=== PATIENT | male | born 1950 | race Caucasian/White ===

== ENCOUNTER 2016-06-19 12:49 | Inpatient (IN) | payer BC ==
[~2016-06-19] VITALS: Ht 185.4 cm; Wt 92.1 kg
[2016-08-19] MEDS ORDERED: VITAMIN C500 MG PO (12:24)
[2016-08-19] MEDS ORDERED: ZESTRIL 10MG10 MG PO (12:24)
[2016-08-19] MEDS ORDERED: FERROUS SU325 MG/TAB PO (12:24)
[2016-08-19] MEDS ORDERED: FOLIC ACID 40400 MCG PO (12:24)
[2016-08-20] MEDS ORDERED: SUDAFED60 MG PO (12:37)
[2016-08-21] VITALS (12 sets, daily range): BP systolic 105–157; BP diastolic 57–95; PULSE 55–95; TEMP 97.5–98.9
[2016-08-22 04:32] VITALS: BP 136/78; PULSE 90; TEMP 98.1
[2016-08-22 06:46] LABS: HEMATOCRIT 35.6 % (42.0-52.0); HEMOGLOBIN 11.7 g/dl (13.5-18.0)
[2016-08-22 07:35] VITALS: BP 113/55; PULSE 78; TEMP 98.9
[2016-08-22 11:45] VITALS: BP 119/60; PULSE 78; TEMP 98.8
[2016-08-22 16:17] VITALS: BP 129/60; PULSE 80; TEMP 98.8
[2016-08-22 20:11] VITALS: BP 121/67; PULSE 78; TEMP 98.5
[2016-08-23 00:18] VITALS: BP 127/65; PULSE 80; TEMP 97.2
[2016-08-23 04:19] VITALS: BP 122/64; PULSE 76; TEMP 98.5
[2016-08-23 06:36] LABS: HEMATOCRIT 32.8 % (42.0-52.0); HEMOGLOBIN 10.9 g/dl (13.5-18.0)
[2016-08-23] MEDS ORDERED: ASPI325T6 PO (06:39)
[2016-08-23] MEDS ORDERED: NORCO 325 MG-7.1 TAB PO (06:39)
[2016-08-23] MEDS ORDERED: SENOKOT S 50 MG1 TAB PO (06:40)
[2016-08-23] MEDS ORDERED: ROXICODONE 55 MG/TAB PO (06:40)
[2016-08-23 08:01] VITALS: BP 118/64; PULSE 90; TEMP 99.4
[2016-08-23 13:14] VITALS: BP 138/69; PULSE 80; TEMP 98.5
[2017-01-23] MEDS ORDERED: VALIUM 5MG T5 MG/TAB PO (09:47)
== END 2016-08-23 15:55 | disposition home or self-care (01) | DRG 470 ==
LOC: JCC 08-21 05:19
PROVIDERS: Orthopaedic Surgery
PROC: 0SRC0J9 Replacement of Right Knee Joint with Synthetic Substitute, Cemented, Open Approach (ICD-10-PCS; principal; 2016-08-21 07:30)
DX: M17.11 Unilateral primary osteoarthritis, right knee (principal)
CPT/HCPCS: A4315; A9284; C1713; C1776; J0690; J1100; J1200; J2250; J2405; J2704; J3010; J7042; J7120

== ENCOUNTER → 2017-01-07 | Outpatient (CLI) | payer BC ==
[~2017-01-07] MED LIST: ASPI325T6 PO; FERROUS SU325 MG/TAB PO; FOLIC ACID 40400 MCG PO; IBU600 MG PO; NORCO 325 MG-7.1 TAB PO; PROTONIX 40MG T40 MG PO; ROXICODONE 55 MG/TAB PO; SENOKOT S 50 MG1 TAB PO; SUDAFED60 MG PO; TYLENOL 500MG500 MG PO; VALIUM 5MG T5 MG/TAB PO; VITAMIN C500 MG PO; ZESTRIL 10MG10 MG PO
== END ==
LOC: COL.RAD 08:13
DX: R19.00 Intra-abdominal and pelvic swelling, mass and lump, unspecified site (principal); R93.5 Abnormal findings on diagnostic imaging of other abdominal regions, including retroperitoneum

== ENCOUNTER → 2017-01-27 | Outpatient (CLI) | payer BC ==
[2017-01-27] VITALS (12 sets, daily range): BP systolic 128–163; BP diastolic 81–95; PULSE 73–85
[~2017-01-27] VITALS: Ht 188 cm; Wt 103.7 kg
== END ==
LOC: COL.RAD 12:00
DX: K66.8 Other specified disorders of peritoneum (principal); R19.04 Left lower quadrant abdominal swelling, mass and lump
CPT/HCPCS: 25757

== ENCOUNTER 2017-04-30 11:28 | Outpatient (CLI) | payer BC ==
[~2017-04-30] VITALS: Ht 188 cm; Wt 91.3 kg
[~2017-04-30 11:28] MED LIST changes: -IBU600 MG PO; -PROTONIX 40MG T40 MG PO; -TYLENOL 500MG500 MG PO
[2017-04-30] MEDS ORDERED: IBU600 MG PO (11:35)
[2017-04-30] MEDS ORDERED: TYLENOL 500MG500 MG PO (11:36)
[2017-04-30] MEDS ORDERED: PROTONIX 40MG T40 MG PO (11:37)
[2017-04-30 12:02] VITALS: BP 112/71; PULSE 87; TEMP 98.7
== END 2017-04-30 12:21 | disposition home or self-care (01) ==
LOC: EUO 11:28
DX: C18.1 Malignant neoplasm of appendix (principal)

== ENCOUNTER → 2021-05-25 | Outpatient (CLI) | payer MEDICARE, OTHER ==
[~2021-05-25] VITALS: Ht 188 cm; Wt 105.0 kg
[~2021-05-25] MED LIST changes: +IBU600 MG PO; +LIPITOR 10MG10 MG PO; +PROTONIX 40MG T40 MG PO; +TYLENOL 500MG500 MG PO; +VIVLODEX5 MG PO
[2021-05-25 13:04] VITALS: BP 147/66; PULSE 80; TEMP 98.5
[2021-05-25 13:50] VITALS: BP 155/100; PULSE 81
[2021-05-25 13:59] VITALS: PULSE 156
[2021-05-25 14:06] VITALS: BP 158/96
== END ==
LOC: COL.RAD 12:21
DX: M48.00 Spinal stenosis, site unspecified (principal); M54.16 Radiculopathy, lumbar region
CPT/HCPCS: J3301

== ENCOUNTER → 2021-11-20 | Outpatient (CLI) | payer MEDICARE, OTHER ==
[~2021-11-20] VITALS: Ht 188 cm; Wt 104.1 kg
[~2021-11-20] MED LIST changes: +ELIQUIS 2.5; +ZESTRIL2.5 MG PO
[2021-11-20 07:28] VITALS: BP 130/81; PULSE 76; TEMP 98.2
[2021-11-20 08:15] VITALS: BP 152/77; PULSE 70
== END ==
LOC: COL.RAD 06:57
DX: M48.061 Spinal stenosis, lumbar region without neurogenic claudication (principal)
CPT/HCPCS: J3301

== ENCOUNTER → 2022-03-11 | Outpatient (CLI) | payer MEDICARE, OTHER | LOC: MHCPAIN 09:53 | DX: M47.816 Spondylosis without myelopathy or radiculopathy, lumbar region (principal); M53.3 Sacrococcygeal disorders, not elsewhere classified; G89.29 Other chronic pain | CPT/HCPCS: G0463 ==

== ENCOUNTER → 2022-03-14 | Outpatient (CLI) | payer MEDICARE, OTHER | LOC: MHCPAIN 13:44 | DX: M53.3 Sacrococcygeal disorders, not elsewhere classified (principal); M47.817 Spondylosis without myelopathy or radiculopathy, lumbosacral region | CPT/HCPCS: G0260; J1040; Q9967 ==

== ENCOUNTER → 2022-04-03 | Outpatient (CLI) | payer MEDICARE, OTHER | LOC: MHCPAIN 10:35 | DX: M47.896 Other spondylosis, lumbar region (principal); M53.3 Sacrococcygeal disorders, not elsewhere classified | CPT/HCPCS: G0463 ==